=== PATIENT | female | born 1955 | race African-American/Black ===

== ENCOUNTER 2017-04-25 20:16 | Emergency (ER) | payer BC ==
[~2017-04-25] VITALS: Ht 167.6 cm; Wt 81.0 kg
[~2017-04-25 20:16] MED LIST: AMLO10 PO; LISI-363 PO; METO100T OR; ZITH250T PO
[2017-04-25 20:20] VITALS: BP 226/107; PULSE 112; RESP 18; TEMP 98.1; O2SAT 98
[2017-04-25] MEDS ORDERED: AMLO10TA2 PO (20:41)
[2017-04-25] MEDS ORDERED: LOSA100T PO (20:41)
[2017-04-25] MEDS ORDERED: METF500T PO (20:41)
[2017-04-25] MEDS ORDERED: METO50TA PO (20:41)
[2017-04-25] MEDS ORDERED: RESP: ALBUTEROL 2.5 MG/IPRATROPIUM 0.5 MG NEB (SCH) INH ONE (21:00)
[2017-04-25] MEDS ORDERED: methylPREDNISolone SOD SUCC 125 MG/2 ML VIAL IV PUSH ONE (21:00)
[2017-04-25] MEDS ORDERED: SODIUM CHLORIDE 0.9% FLUSH 10 ML FLUSH IV FLUSH PRN (21:00)
[2017-04-25] MEDS ORDERED: LOSARTAN 50 MG TAB PO ONE (21:00)
[2017-04-25] MEDS ORDERED: METOPROLOL TARTRATE 50 MG TAB PO ONE (21:00)
[2017-04-25 21:20] LABS: AUTOMATED NEUTROPHIL # 4.7 TH/MM3 (1.8-7.7); BASOPHIL # 0.1 TH/MM3 (0-0.2); BASOPHIL % 0.7 % (0.0-2.0); EOSINOPHIL # 0.2 TH/MM3 (0-0.4); EOSINOPHIL % 2.9 % (0.0-4.0); HEMATOCRIT 33.5 % (35.0-46.0); HEMOGLOBIN 10.8 GM/DL (11.6-15.3); LYMPHOCYTE # 2.4 TH/MM3 (1.0-4.8); MEAN CELL VOLUME 79.5 FL (80.0-100.0); MEAN CORPUSCULAR HEMOGLOBIN 25.6 PG (27.0-34.0); MEAN CORPUSCULAR HGB CONC 32.2 % (32.0-36.0); MEAN PLATELET VOLUME 9.2 FL (7.0-11.0); MONO % 7.3 % (0.0-8.0); MONOCYTE # 0.6 TH/MM3 (0-0.9); NEUT % 59.1 % (16.0-70.0); PLATELET COUNT 307 TH/MM3 (150-450); RED BLOOD COUNT 4.22 MIL/MM3 (4.00-5.30); RED CELL DISTRIBUTION WIDTH 12.5 % (11.6-17.2)
[2017-04-25 21:23] VITALS: BP 152/83; PULSE 100; RESP 20; O2SAT 100
[2017-04-25 21:24] VITALS: O2SAT 100
[2017-04-25 21:29] LABS: CHLORIDE 107 MEQ/L (98-107); SODIUM (NA) 140 MEQ/L (136-145)
--- NOTE | 2017-04-25 21:29 | PD ---
HPI Chief Complaint: Cold / Flu Symptoms Time Seen by Provider: 20:44 Travel History International Travel<30 days: No Contact w/Intl Traveler<30days: No Traveled to known affect area: No History of Present Illness HPI 62-year-old female with history of diabetes, hypertension, here for evaluation of cough stating that she thinks she has bronchitis. Symptoms started yesterday evening. Cough is productive of yellowish sputum. No fevers or chills. No chest pain. She has slight dyspnea. Blood pressure was notably elevated in triage, the patient reports that she has not taken her evening doses of her antihypertensives yet. She does have a slight headache that is worse with coughing and is frontal. No visual disturbances. No paresthesias or motor deficits. PFSH Past Medical History Hx Anticoagulant Therapy: Yes (81MG ASA) Anxiety: Yes Cardiac Catheterization: Yes (H/O 2 STENTS PLACED) Cardiovascular Problems: Yes (STENTS X2, HTN) Diabetes: Yes Patient Takes Glucophage: Yes Genitourinary: Yes (uti) Hypertension: Yes Tetanus Vaccination: < 5 Years Influenza Vaccination: No ?: Not Menopausal: Yes : 4 Para: 3 Miscarriage: 1 Social History Alcohol Use: No (occasional) Tobacco Use: No (quit 9 years ago) Substance Use: No Allergies-Medications (Allergen,Severity, Reaction): Coded Allergies: acetaminophen (Unverified Allergy, Severe, 04/25/17) propoxyphene (Unverified Allergy, Severe, 04/25/17) Reported Meds & Prescriptions Reported Meds & Active Scripts Active Reported Amlodipine (Amlodipine Besylate) 10 Mg Tab 10 Mg PO DAILY Metoprolol Tartrate 50 Mg Tab 50 Mg PO BID Losartan (Losartan Potassium) 100 Mg Tab 100 Mg PO DAILY Metformin (Metformin HCl) 500 Mg Tab 500 Mg PO BIDPC Review of Systems Except as stated in HPI: all other systems reviewed are Neg Physical Exam Narrative GENERAL: Well-developed, well-nourished, awake, alert, intermittently coughing, no apparent distress. SKIN: Focused skin assessment warm/dry. HEAD: Atraumatic. Normocephalic. EYES: Pupils equal and round. No scleral icterus. No injection or drainage. ENT: No nasal bleeding or discharge. Mucous membranes pink and moist. NECK: Trachea midline. No JVD. CARDIOVASCULAR: Regular rate and rhythm. RESPIRATORY: No accessory muscle use. Clear to auscultation. Breath sounds equal bilaterally. Intermittently coughing. GASTROINTESTINAL: Abdomen soft, non-tender, nondistended. MUSCULOSKELETAL: No obvious deformities. No clubbing. No cyanosis. No edema. NEUROLOGICAL: Awake and alert. No obvious cranial nerve deficits. Motor grossly within normal limits. Normal speech. PSYCHIATRIC: Appropriate mood and affect; insight and judgment normal. Data Data Last Documented VS Vital Signs Date Time Temp Pulse Resp B/P (MAP) Pulse Ox O2 Delivery O2 Flow Rate FiO2 04/25/17 21:24 100 04/25/17 21:23 100 20 04/25/17 20:20 98.1 Orders Orders Complete Blood Count With Diff (04/25/17 20:46) Comprehensive Metabolic Panel (04/25/17 20:46) Iv Access Insert/Monitor (04/25/17 20:46) Ecg Monitoring (04/25/17 20:46) Oximetry (04/25/17 20:46) Sodium Chloride 0.9% Flush (Ns Flush) (04/25/17 21:00) Electrocardiogram (04/25/17 20:46) Chest, Single Ap (04/25/17 20:46) Methylprednisolone So Succ Inj (Solumedr (04/25/17 21:00) Albuterol-Ipratropium Neb (Duoneb Neb) (04/25/17 21:00) Influenzae A/B Antigen (04/25/17 20:46) Amlodipine (Norvasc) (04/25/17 21:00) Metoprolol Tartrate (Lopressor) (04/25/17 21:00) Losartan (Cozaar) (04/25/17 21:00) Labs Laboratory Tests Test 04/25/17 21:02 White Blood Count 8.0 TH/MM3 Red Blood Count 4.22 MIL/MM3 Hemoglobin 10.8 GM/DL Hematocrit 33.5 % Mean Corpuscular Volume 79.5 FL Mean Corpuscular Hemoglobin 25.6 PG Mean Corpuscular Hemoglobin Concent 32.2 % Red Cell Distribution Width 12.5 % Platelet Count 307 TH/MM3 Mean Platelet Volume 9.2 FL Neutrophils (%) (Auto) 59.1 % Lymphocytes (%) (Auto) 30.0 % Monocytes (%) (Auto) 7.3 % Eosinophils (%) (Auto) 2.9 % Basophils (%) (Auto) 0.7 % Neutrophils # (Auto) 4.7 TH/MM3 Lymphocytes # (Auto) 2.4 TH/MM3 Monocytes # (Auto) 0.6 TH/MM3 Eosinophils # (Auto) 0.2 TH/MM3 Basophils # (Auto) 0.1 TH/MM3 CBC Comment DIFF FINAL Differential Comment Blood Urea Nitrogen 17 MG/DL Creatinine 1.20 MG/DL Random Glucose 109 MG/DL Total Protein 7.9 GM/DL Albumin 3.4 GM/DL Calcium Level 8.8 MG/DL Alkaline Phosphatase 126 U/L Aspartate Amino Transf (AST/SGOT) 37 U/L Alanine Aminotransferase (ALT/SGPT) 47 U/L Total Bilirubin 0.3 MG/DL Sodium Level 140 MEQ/L Potassium Level 3.6 MEQ/L Chloride Level 107 MEQ/L Carbon Dioxide Level 27.0 MEQ/L Anion Gap 6 MEQ/L Estimat Glomerular Filtration Rate 55 ML/MIN MDM Medical Decision Making Medical Screen Exam Complete: Yes Emergency Medical Condition: Yes Medical Record Reviewed: Yes Interpretation(s) EKG: Sinus, rate 81, leftward axis, normal intervals, LVH, no acute ischemic abnormality. Differential Diagnosis Bronchitis, pneumonia, viral illness, hypertensive crisis less likely Narrative Course Initial vital signs show heart rate 112, blood pressure 226/106, pulse ox 98% on room air, oral temp of 98.1F. Patient was given her antihypertensives as well as a DuoNeb treatments and IV Solu-Medrol, and repeat vital signs show heart rate 79, blood pressure 152/83, pulse ox 100% on room air. CBC: WBC 8, hemoglobin 10.8, hematocrit 33.5, platelets 307. CMP is essentially unremarkable. Chest x-ray: The lungs are clear. Influenza is negative. Patient was given 3 DuoNeb treatments and IV Solu-Medrol, and on reassessment she feels significantly improved. She is in no respiratory distress. She feels well and would like to be discharged home. I will give her prescription for a Z-Yg as well as prednisone and an albuterol inhaler. She was advised to follow up with her primary care physician in the next 1-2 days. She was advised when to return to the emergency department. She verbalizes understanding and agreement with plan. Diagnosis Primary Impression: Bronchitis Referrals: Primary Care Physician 3 days Additional Instructions: Follow-up with your primary care physician this week. Return to the emergency department for worsening symptoms or any other concerns. Scripts Azithromycin (Zithromax Z-Yg) 250 Mg Dspk 250 MG PO DIRECTED for Infection, #1 DSPK 0 Refills 500 MG (2 tabs) day 1, then 1 tab days 2-5. Prov: Natanael Costa MD 04/25/17 Albuterol 18 GM Inh (Ventolin Hfa 18 GM Inh) 90 Mcg/Act Aer 2 PUFF INH Q4-6H Y for SHORTNESS OF BREATH, #1 INHALER 0 Refills Prov: Natanael Costa MD 04/25/17 Prednisone (Prednisone) 50 Mg Tab 50 MG PO DAILY for 5 Days, #5 TAB 0 Refills Prov: Natanael Costa MD 04/25/17 Disposition: 01 DISCHARGE HOME Condition: Stable Natanael Costa MD Apr 25, 2017 21:29
[2017-04-25 21:33] LABS: ALBUMIN 3.4 GM/DL (3.4-5.0); BLOOD UREA NITROGEN 17 MG/DL (7-18); CALCIUM 8.8 MG/DL (8.5-10.1); GLUCOSE,RANDOM 109 MG/DL (74-106)
[2017-04-25 21:36] LABS: ALT (GPT) 47 U/L (10-53); AST (GOT) 37 U/L (15-37); GLOMERULAR FILTRATION RATE 55 ML/MIN (>89)
--- NOTE | 2017-04-25 21:37 | RADRPT ---
EXAM DATE/TIME: 04/25/2017 21:26 [facility] COMPARISON: No previous studies available for comparison. INDICATIONS : Cough and congestion for 3 days. MEDICAL HISTORY : Hypertension. Cardiovascular disease. SURGICAL HISTORY : Coronary artery stent. ENCOUNTER: Initial ACUITY: 3 days PAIN SCORE: 2/10 LOCATION: Bilateral chest FINDINGS: A single view of the chest demonstrates the lungs to be symmetrically aerated without evidence of mas s, infiltrate or effusion. The cardiomediastinal contours are unremarkable. Osseous structures are intact. CONCLUSION: The lungs are clear. Del Aguilar MD on April 25, 2017 at 21:34 Board Certified Radiologist. This report was verified electronically.
[2017-04-25 21:38] LABS: TOTAL BILIRUBIN ADULT 0.3 MG/DL (0.2-1.0); TOTAL PROTEIN 7.9 GM/DL (6.4-8.2)
[2017-04-25 21:39] LABS: ALKALINE PHOSPHATASE 126 U/L (45-117)
[2017-04-25] MEDS ORDERED: ZITHTAB PO (21:59)
[2017-04-25] MEDS ORDERED: VENTAER INH (21:59)
[2017-04-25] MEDS ORDERED: PRED50 PO (21:59)
[2017-04-25 22:18] VITALS: BP 150/83
--- NOTE | 2017-04-26 06:26 | EKG ---
Date Performed: 04/25/2017 Time Performed: 21:55:09 PTAGE: 62 years EKG: Sinus rhythm VOLTAGE CRITERIA FOR LVH ABNORMAL ECG INTERPRETATION BASED ON A DEFAULT AGE OF 40 YEARS No significa nt change from prior electrocardiogram. NO PREVIOUS TRACING DOCTOR: Siddhartha [place] Interpretating Date/Time 04/26/2017 06:25:04
== END 2017-04-25 22:19 | disposition home or self-care (01) ==
LOC: PHED 20:16
DX: J40 Bronchitis, not specified as acute or chronic (principal); E11.9 Type 2 diabetes mellitus without complications; I10 Essential (primary) hypertension; R94.31 Abnormal electrocardiogram [ECG] [EKG]; Z95.5 Presence of coronary angioplasty implant and graft; Z79.82 Long term (current) use of aspirin; Z79.84 Long term (current) use of oral hypoglycemic drugs; Z87.891 Personal history of nicotine dependence
CPT/HCPCS: 71010; 80053; 85025; 87804; 93005; 94664; 96374; 99284; J2930

== ENCOUNTER 2017-08-28 08:16 | Emergency (ER) | payer BC ==
[~2017-08-28] VITALS: Ht 170.2 cm; Wt 83.4 kg
[~2017-08-28 08:16] MED LIST changes: -AMLO10 PO; +AMLO10TA2 PO; -LISI-363 PO; +LOSA100T PO; +METF500T PO; -METO100T OR; +METO50TA PO; +PRED50 PO; +VENTAER INH; -ZITH250T PO; +ZITHTAB PO
[2017-08-28 08:19] VITALS: BP 207/96; PULSE 100; RESP 18; TEMP 98.3; O2SAT 97
[2017-08-28] MEDS ORDERED: TIZA2TAB PO (09:06)
[2017-08-28] MEDS ORDERED: MEDR4PAK PO (09:06)
[2017-08-28] MEDS ORDERED: methylPREDNISolone SOD SUCC 125 MG/2 ML VIAL IM ONE (09:15)
[2017-08-28] MEDS ORDERED: KETOROLAC TROMETHAMINE 60 MG/2 ML (IM) VIAL IM ONE (09:15)
--- NOTE | 2017-08-28 09:16 | PD ---
HPI Chief Complaint: Hip Injury Time Seen by Provider: 08:56 Travel History International Travel<30 days: No Contact w/Intl Traveler<30days: No History of Present Illness HPI 62y female presents to the ED from home c/o severe left back and leg pain after waking this morning. Says lower left lumbar paraspinous area is sharp, aching and radiates to the left thigh. Says she has associated intermittent muscle spasms. Severity is moderate to severe. Denies loss of bowel or bladder function , saddle anesthesia, numbness or tingling, trauma, fever, chills, h/o IVDU. She took her friend's Robaxin and tried biofreeze but she still complains of severe pain. Says nothing seems to improve her pain. Movement makes it worse. She has a history of HTN, cardiac stents. She has a history of low back pain but this has not occurred in some time. PFSH Past Medical History Hx Anticoagulant Therapy: Yes (81MG ASA) Anxiety: Yes Cardiac Catheterization: Yes (H/O 2 STENTS PLACED) Cardiovascular Problems: Yes (STENTS X2, HTN) Diabetes: Yes Genitourinary: Yes (uti) Hypertension: Yes Menopausal: Yes : 4 Para: 3 Miscarriage: 1 Social History Alcohol Use: No (occasional) Tobacco Use: No (quit 9 years ago) Substance Use: No Allergies-Medications (Allergen,Severity, Reaction): Coded Allergies: acetaminophen (Unverified Allergy, Severe, 08/28/17) propoxyphene (Unverified Allergy, Severe, 08/28/17) Reported Meds & Prescriptions Reported Meds & Active Scripts Active Tizanidine (Tizanidine HCl) 2 Mg Tab 2 Mg PO TID 5 Days Medrol Dosepak (Methylprednisolone) 4 Mg Dspk 4 Mg PO DIRECTED Per Pharmacist direction Ventolin Hfa 18 GM Inh (Albuterol Sulfate) 90 Mcg/Act Aer 2 Puff INH Q4-6H PRN Reported Amlodipine (Amlodipine Besylate) 10 Mg Tab 10 Mg PO DAILY Metoprolol Tartrate 50 Mg Tab 50 Mg PO BID Losartan (Losartan Potassium) 100 Mg Tab 100 Mg PO DAILY Metformin (Metformin HCl) 500 Mg Tab 500 Mg PO BIDPC Review of Systems Except as stated in HPI: all other systems reviewed are Neg Physical Exam Narrative GENERAL: Well-developed, well-nourished in mild distress SKIN: Focused skin assessment warm/dry. HEAD: Atraumatic. Normocephalic. oist. NECK: Trachea midline. No JVD. No midline tenderness CARDIOVASCULAR: Regular rate and rhythm. No murmur appreciated. RESPIRATORY: No accessory muscle use. Clear to auscultation. Breath sounds equal bilaterally. GASTROINTESTINAL: Abdomen soft, non-tender, nondistended. Hepatic and splenic margins not palpable. No CVA tenderness MUSCULOSKELETAL: No obvious deformities. No clubbing. No cyanosis. No edema. Homans sign negative bilaterally. Mild tenderness palpation of the left glutes BACK: No rash. No point tenderness on palpation of the spine. Mild tenderness palpation to the left lower lumbar paraspinous muscles NEUROLOGICAL: Awake and alert. No obvious cranial nerve deficits. Motor grossly within normal limits. Normal speech. PSYCHIATRIC: Appropriate mood and affect; insight and judgment normal. Data Data Last Documented VS Vital Signs Date Time Temp Pulse Resp B/P (MAP) Pulse Ox O2 Delivery O2 Flow Rate FiO2 08/28/17 09:25 97 16 177/88 (117) 99 Room Air 08/28/17 08:19 98.3 Orders Orders Methylprednisolone So Succ Inj (Solumedr (08/28/17 09:15) Ketorolac Inj (Toradol Inj) (08/28/17 09:15) Ed Discharge Order (08/28/17 09:28) [facility] Medical Decision Making Medical Screen Exam Complete: Yes Emergency Medical Condition: Yes Differential Diagnosis Sciatica, muscle spasms, lumbago, UTI Narrative Course 62-year-old female presents emergency department complaining of left lower lumbar paraspinous muscle pain with radiation into the thigh. Patient does have a history of low back pain but has not had an issues in some time. She denies any inciting events. Says she has used Biofreeze and muscle relaxers without relief. No red flag signs or symptoms. Vital signs-patient is hypertensive however, this seems to be the trend with this patient. The exam findings demonstrate mild tenderness palpation of the left paraspinous muscle and glut. Solu-Medrol and Toradol administered in the emergency department today. Patient will be discharged with Medrol Dosepak and tizanidine. Patient may take [id number] anti-inflammatories for her pain. She is advised to follow-up with a primary care physician within 2-3 days. Return for worsening or persistent symptoms. Diagnosis Primary Impression: Lumbago with sciatica, left side Qualified Codes: M54.42 - Lumbago with sciatica, left side Referrals: Orthopedist Primary Care Physician Patient Instructions: Acute Low Back Pain (ED), General Instructions Departure Forms: Tests/Procedures, Work Release Enter return to work date: Aug 30, 2017 Additional Instructions: Perform light stretches of the lower back and legs, and alternate heat and ice packs. If you develop increased pain, weakness, fever, chills, or bowel or bladder issues, return to the ED for further treatment and evaluation. Follow up with your primary care physician in 2-3 days. Take all medications as prescribed. Scripts Tizanidine (Tizanidine) 2 Mg Tab 2 MG PO TID for Muscle Spasm for 5 Days, TAB 0 Refills Prov: Sonny Orozco MD 08/28/17 Methylprednisolone Dosepak (Medrol Dosepak) 4 Mg Dspk 4 MG PO DIRECTED, #1 DSPK 0 Refills Per Pharmacist direction Prov: Sonny Orozco MD 08/28/17 Disposition: 01 DISCHARGE HOME Condition: Stable Carmina [place] Aug 28, 2017 09:16
[2017-08-28 09:25] VITALS: BP 177/88; PULSE 97; RESP 16; O2SAT 99
== END 2017-08-28 10:08 | disposition home or self-care (01) ==
LOC: PHEFT 08:16
DX: M54.42 Lumbago with sciatica, left side (principal); I10 Essential (primary) hypertension; F41.9 Anxiety disorder, unspecified; E11.9 Type 2 diabetes mellitus without complications; Z79.51 Long term (current) use of inhaled steroids; Z79.899 Other long term (current) drug therapy; Z88.6 Allergy status to analgesic agent; Z88.8 Allergy status to other drugs, medicaments and biological substances
CPT/HCPCS: 96372; 99283; J1885; J2930